=== PATIENT | female | born 1990 | race Caucasian/White ===

== ENCOUNTER 2016-09-25 13:44 | Emergency (ER) | payer OTHER ==
[~2016-09-25] VITALS: Ht 165.1 cm; Wt 77.0 kg
[~2016-09-25 13:44] MED LIST: CIPR500T4 PO; HYDR-3498 PO; ONDA4TAB8 PO
[2016-09-25 13:54] VITALS: Ht 165.1 cm; Wt 77.0 kg
[2016-09-25] MEDS ORDERED: ONDANSETRON (ODT) 4 MG TAB ODT STA (15:13)
[2016-09-25 15:19] LABS: URINE BLOOD (Dip) POC Trace-intact (NEGATIVE)
[2016-09-25] MEDS ORDERED: HYDROCODONE/APAP (5/325) TAB PO ONE (15:30)
--- NOTE | 2016-09-25 15:58 | RADRPT ---
PROCEDURE: US Pelvis. CLINICAL INDICATION: pelvic pain TECHNIQUE: Multiple sonographic images of the pelvis were obtained utilizing a transabdominal and endovaginal technique. The images were reviewed on a PACS workstation. COMPARISON: 06/16/2015 FINDINGS: The uterus is normal in size with a normal appearance of the myometrium. The uterus measures 7.1 x 2.9 x 3.7 cm. The endometrial stripe is homogeneous in appearance and has the thickness of 4 mm. The re is a trace amount of fluid in the endometrium in the lower uterine segment. The ovaries are normal in size and echogenicity. Normal Doppler flow is identified in both ovaries. The right ovary measures 2.8 x 2.3 x 2.2 cm. The left ovary measures 2.4 x 1.4 x 1.7 cm. There is a trace amount of free fluid in the cul-de-sac. RPTAT: AA IMPRESSION: Trace amount of fluid within the endometrium in the lower uterine segment. Trace amount of free fluid in the cul-de-sac. .Tray Reynolds MD, Date Time Electronically viewed and signed by .Tray Reynolds MD, on 09/25/2016 15:58 .S/
[2016-09-25] MEDS ORDERED: LIDOCAINE 1% (MDV) 20 ML INJ SC ONE (17:00)
[2016-09-25] MEDS ORDERED: CEFTRIAXONE 1 GM INJ IM ONE (17:00)
[2016-09-25] MEDS ORDERED: CIPR500T4 PO (17:05)
[2016-09-25] MEDS ORDERED: HYDR-906 PO (17:05)
[2016-09-25] MEDS ORDERED: IBUP-1542 PO (17:05)
--- NOTE | 2016-09-25 17:09 | ERD ---
ER Documentation Chief Complaint Date/Time DATE: 09/25/16 TIME: 17:07 Chief Complaint LEFT LOWER PELVIC PAIN X 1 WEEK WORSE TODAY HPI This 26-year-old female complains of suprapubic and mild left-sided lower abdominal pain for last week. It got worse today. She does have some dysuria. She has nausea with vomiting. She denies fevers, right-sided abdominal pain, cough, shortness breath or chest pain. ROS All systems reviewed and are negative except as per history of present illness. Medications Home Meds Active Scripts Ibuprofen* (Motrin*) 600 Mg Tab, 600 MG PO Q6H Y for PAIN, #15 TAB Prov:GAUDENCIO HOLLINGSWORTH MD 09/25/16 Hydrocodone/Acetaminophen (Ridgway 5-325 Tablet) 1 Each Tablet, 1 EACH PO QID, # 10 TAB Prov:GAUDENCIO HOLLINGSWORTH MD 09/25/16 Ciprofloxacin Hcl* (Ciprofloxacin Hcl*) 500 Mg Tablet, 500 MG PO BID for 10 Days , #14 TAB Prov:GAUDENCIO HOLLINGSWORTH MD 09/25/16 Ondansetron Hcl* (Zofran*) 4 Mg Tablet, 4 MG PO Q8H Y for NAUSEA AND/OR VOMITING , #9 TAB Prov:DORENE DSOUZA DO 09/22/15 Ciprofloxacin Hcl* (Ciprofloxacin Hcl*) 500 Mg Tablet, 500 MG PO BID for 14 Days , TAB Prov:DORENE DSOUZA DO 09/22/15 Hydrocodone Bit-Acetaminophen* (Ridgway*) 5-325 Mg Tab, 1 TAB PO Q6 Y for PAIN, # 7 TAB Prov:SHAINA REIS DO 06/16/15 Ciprofloxacin Hcl* (Ciprofloxacin Hcl*) 500 Mg Tablet, 500 MG PO BID for 7 Days , TAB Prov:SHAINA REIS DO 06/16/15 Allergies Allergies: Coded Allergies: tetracycline (Verified Allergy, Unknown, 09/22/15) PMhx/Soc History of Surgery: No Anesthesia Reaction: No Hx Neurological Disorder: No Hx Respiratory Disorders: No Hx Cardiac Disorders: No Hx Psychiatric Problems: No Hx Miscellaneous Medical Probl: No Hx Alcohol Use: No Hx Substance Use: Yes Hx Tobacco Use: No Smoking Status: Never smoker Physical Exam Vitals Vital Signs Date Time Temp Pulse Resp B/P Pulse Ox O2 Delivery O2 Flow Rate FiO2 09/25/16 13:54 97.9 82 18 111/66 99 Physical Exam Const: [] Alert, [id number]. Head: Atraumatic Eyes: Normal Conjunctiva ENT: Normal External Ears, Nose and Mouth. Neck: Full range of motion..~ No meningismus. Resp: Clear to auscultation bilaterally Cardio: Regular rate and rhythm, no murmurs Abd: Soft, tender in the suprapubic area and mildly in the left lower quadrant. No tenderness at McBurney's point no Chakraborty sign no rebound. R, non distended. Normal bowel sounds Skin: No petechiae or rashes Back: No midline or flank tenderness Ext: No cyanosis, or edema Neur: Awake and alert Psych: Normal Mood and Affect Results 24 hrs Laboratory Tests Test 09/25/16 15:21 Bedside Urine pH (LAB) 7.0 Bedside Urine Protein (LAB) Negative Bedside Urine Glucose (UA) Negative Bedside Urine Ketones (LAB) Negative Bedside Urine Blood Trace-intact Bedside Urine Nitrite (LAB) Positive Bedside Urine Leukocyte Esterase (L 1+ Current Medications Medications (Trade) Dose Ordered Sig/Yves Route PRN Reason Start Time Stop Time Status Last Admin Dose Admin Ondansetron HCl (Zofran Odt) 8 mg ONCE STAT ODT 09/25/16 15:13 09/25/16 15:15 DC 09/25/16 15:20 Acetaminophen/ Hydrocodone Bitart (Ridgway (5/325)) 1 tab ONCE ONCE PO 09/25/16 15:30 09/25/16 15:31 DC 09/25/16 15:20 Ceftriaxone Sodium (Rocephin) 1 gm ONCE ONCE IM 09/25/16 17:00 09/25/16 17:01 UNV Lidocaine (Xylocaine 1% (Mdv) 20 ml) 20 ml ONCE ONCE SC 09/25/16 17:00 09/25/16 17:01 UNV Procedures/MDM Patient is positive leukocytes, nitrites and hemoglobin. There is no glucose. Urine was sent for culture. HCG is negative. Pelvic ultrasound shows no evidence of torsion, tubo-ovarian abscess or additional acute findings except for trace fluid in the endometrium. Patient was given [place] 5 mg by mouth, Zofran 8 mg of mouth and Rocephin 1 g IM. Patient has no abdominal pain dysuria with signs of UTI. Urine was sent for gonorrhea and chlamydia. Patient will be treated with Cipro and ibuprofen and a short course of Ridgway at home with instructions for clear fluids. Signs or symptoms do not suggest appendicitis, acute abdomen, hepatobiliary disease, sepsis. She should return for any worsening symptoms as directed after instructions with primary doctor this week. Departure Diagnosis: Primary Impression: UTI (urinary tract infection) Urinary tract infection type: acute cystitis Hematuria presence: without hematuria Qualified Code: N30.00 - Acute cystitis without hematuria Additional Impression: Abdominal pain Abdominal location: left lower quadrant Qualified Code: R10.32 - Left lower quadrant pain Condition: Stable Patient Instructions: Abdominal Pain, Understanding Urinary Tract Infections ( UTIs) Additional Instructions: HAY INFECCION EN ORINA. ERNST MUCHO AGUA. Cheque otro vez con burks doctor primario en el proximo alas or regresa para mas o nueva simptomas. GAUDENCIO HOLLINGSWORTH MD September 25, 2016 17:09
== END 2016-09-25 17:23 | disposition home or self-care (01) ==
LOC: FTE 13:44
DX: N30.00 Acute cystitis without hematuria (principal); R10.32 Left lower quadrant pain
CPT/HCPCS: 76830; 76856; 81003; 87591; J0696; Z7610; 96372

== ENCOUNTER 2017-06-09 03:52 | Emergency (ER) | END 2017-06-09 06:39 | disposition left against medical advice (07) ==

== ENCOUNTER 2017-07-29 12:12 | Emergency (ER) | END 2017-07-29 14:10 | disposition home or self-care (01) ==

== ENCOUNTER 2018-03-31 04:00 | Inpatient (IN) | END 2018-04-03 15:15 | disposition home or self-care (01) | DRG 807 ==